=== PATIENT | female | born 1990 | race Caucasian/White ===

== ENCOUNTER 2016-07-10 18:17 | Inpatient (IN) | payer MEDICAID, SELFPAY ==
[~2016-07-10] VITALS: Ht 170.2 cm; Wt 58.3 kg
[~2016-07-10 18:17] MED LIST: DESO0.0557 EX; PRAZ1CAP PO; PRIL20CA PO; REME15TA PO; TRAZ100T2 PO; VICO5TAB PO
[2016-07-10] MEDS ORDERED: QUET1TAB8 PO (18:40)
[2016-07-10] MEDS ORDERED: CLIN1CAP5 PO (18:40)
[2016-07-10] MEDS ORDERED: CYCL10TA PO (18:40)
[2016-07-10] MEDS ORDERED: VALA1TAB PO (18:40)
[2016-07-10 19:46] LABS: MEAN CORPUSCULAR HEMOGLOBIN 28.4 pg (27.0-33.0); MEAN CORPUSCULAR VOLUME 91.6 fl (80.0-96.0); RED CELL DISTRIBUTION WIDTH 13.4 % (11.5-14.5); WHITE BLOOD COUNT 9.4 K/mm3 (4.0-10.0)
[2016-07-10 20:21] LABS: METHADONE URINE NEGATIVE (NEGATIVE)
[2016-07-10 20:26] LABS: ALBUMIN 3.5 GM/DL (3.2-5.2); ALBUMIN/GLOBULIN RATIO 1.06 (1.00-1.93); ALKALINE PHOSPHATASE 86 U/L (45-117); ALT/SGPT 83 U/L (12-78); ANION GAP 9 MEQ/L (8-16); AST/SGOT 38 U/L (15-37); BILIRUBIN,DIRECT < 0.1 MG/DL (0.0-0.2); BILIRUBIN,TOTAL 0.2 MG/DL (0.2-1.0); BLOOD UREA NITROGEN 10 MG/DL (7-18); CALCIUM LEVEL 8.5 MG/DL (8.5-10.1); CARBON DIOXIDE LEVEL 24 MEQ/L (21-32); CHLORIDE LEVEL 110 MEQ/L (98-107); CREATININE FOR GFR 0.78 MG/DL (0.55-1.02); GLOMERULAR FILTRATION RATE > 60.0 (>60); GLUCOSE, FASTING 77 MG/DL (70-105); POTASSIUM SERUM 4.3 MEQ/L (3.5-5.1); SODIUM LEVEL 143 MEQ/L (136-145); TOTAL PROTEIN 6.8 GM/DL (6.4-8.2)
[2016-07-10] MEDS ORDERED: cloNIDine 0.1 MG TAB PO ONE (20:30)
[2016-07-10] MEDS ORDERED: MOM 30ML SUSPENSION UDC PO PRN (21:00)
[2016-07-10] MEDS ORDERED: ACETAMINOPHEN TAB 650MG DOSE (2X325MG) PO PRN (21:00)
[2016-07-10] MEDS ORDERED: MAALOX 30 ML SUSP *UDC PO PRN (21:00)
[2016-07-10] MEDS: traZODone 50 MG TAB PO PRN (23:05)
[2016-07-10] MEDS: LORazepam 1 MG TAB PO PRN (23:05)
[2016-07-10] MEDS ORDERED: NICOTINE 21MG/24HR 1 EA TRANSDERMAL TD ONE (23:15)
[2016-07-11 06:28] VITALS: BP 105/56
[2016-07-11] MEDS: MULTIVITAMINS/MINERALS THERAP 1 TAB PO SCH (09:00)
[2016-07-11] MEDS: NICOTINE 21MG/24HR 1 EA TRANSDERMAL TD SCH ×2 (09:00→11:05)
[2016-07-11] MEDS: FOLIC ACID 1 MG TAB PO SCH (09:00)
[2016-07-11] MEDS: THIAMINE 100 MG TAB PO SCH (09:00)
--- NOTE | 2016-07-11 09:02 | ECGEPIP ---
Stationary ECG Study [facility] - ED Test Date: 2016-07-10 Pat Name: OSCAR RICE Department: Room: [place] [address] Gender: F Home Health Scheduler: : 1990 Requested By: LUÍS CHANDLER Order Number: [id number] Reading MD: Mis Medina Measurements Intervals [place] Rate: 67 P: 58 MT: 136 QRS: 74 QRSD: 82 T: 51 QT: 393 QTc: 416 Interpretive Statements SINUS RHYTHM POSSIBLE RIGHT VENTRICULAR CONDUCTION DELAY NO PRIOR FOR COMPARISON Electronically Signed On 07-11-2016 9:02:41 EDT by Mis Medina
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
[2016-07-11] MEDS: HALOPERIDOL 2 MG TAB PO PRN ×2 (11:05→20:40)
[2016-07-11] MEDS: LORazepam 1 MG TAB PO PRN (11:05)
[2016-07-11 11:40] VITALS: BP 115/58
[2016-07-11] MEDS ORDERED: ONDANSETRON 4 MG TAB (S0181) PO PRN ×2 (11:45→19:15)
[2016-07-11] MEDS ORDERED: LORazepam 1 MG TAB PO PRN (11:45)
[2016-07-11] MEDS: QUEtiapine FUMARATE 50 MG TAB PO SCH ×2 (12:22→20:38)
[2016-07-11 18:00] VITALS: BP 98/56
[2016-07-11 20:00] VITALS: BP 118/60
[2016-07-11] MEDS: cloNIDine 0.1 MG TAB PO PRN (20:38)
[2016-07-11] MEDS: LORazepam 0.5 MG TAB PO PRN (20:39)
[2016-07-11] MEDS: DICYCLOMINE 10 MG CAP PO PRN (20:39)
[2016-07-11] MEDS: CLINDAMYCIN 150 MG CAP PO SCH (22:21)
[2016-07-11 22:41] LABS: CONTROL LINE HCG INT CTR LINE PRESENT
[2016-07-12 06:44] VITALS: BP 101/51
[2016-07-12] MEDS: MULTIVITAMINS/MINERALS THERAP 1 TAB PO SCH (08:05)
[2016-07-12] MEDS: THIAMINE 100 MG TAB PO SCH (08:05)
[2016-07-12] MEDS: FOLIC ACID 1 MG TAB PO SCH (08:05)
[2016-07-12] MEDS: HALOPERIDOL 2 MG TAB PO PRN ×2 (08:05→15:12)
[2016-07-12] MEDS: QUEtiapine FUMARATE 50 MG TAB PO SCH (08:05)
[2016-07-12] MEDS: CLINDAMYCIN 150 MG CAP PO SCH ×3 (08:05→20:54)
[2016-07-12] MEDS: NICOTINE 21MG/24HR 1 EA TRANSDERMAL TD SCH (08:05)
[2016-07-12] MEDS: LORazepam 0.5 MG TAB PO PRN ×3 (08:06→19:08)
[2016-07-12] MEDS: cloNIDine 0.1 MG TAB PO PRN (08:06)
[2016-07-12] MEDS: LACTOBACILLUS ACIDOPHILUS CAP (BACID) PO SCH ×2 (08:06→20:53)
[2016-07-12] MEDS: DICYCLOMINE 10 MG CAP PO PRN ×2 (08:06→19:08)
[2016-07-12 10:00] VITALS: BP 97/51
[2016-07-12] MEDS: DIVALPROEX 250MG *ER* TAB PO SCH ×2 (12:58→20:54)
[2016-07-12 13:24] VITALS: BP 107/52
[2016-07-12 18:00] VITALS: BP 120/59
[2016-07-12] MEDS: QUEtiapine FUMARATE 100 MG TAB PO SCH (20:53)
[2016-07-12 21:00] VITALS: BP 124/58
[2016-07-13 06:47] VITALS: BP 107/60
[2016-07-13] MEDS: FOLIC ACID 1 MG TAB PO SCH (08:32)
[2016-07-13] MEDS: QUEtiapine FUMARATE 100 MG TAB PO SCH ×2 (08:32→20:12)
[2016-07-13] MEDS: MULTIVITAMINS/MINERALS THERAP 1 TAB PO SCH (08:32)
[2016-07-13 08:33] VITALS: BP 122/64
[2016-07-13] MEDS: cloNIDine 0.1 MG TAB PO PRN (08:33)
[2016-07-13] MEDS: CLINDAMYCIN 150 MG CAP PO SCH ×3 (08:33→20:12)
[2016-07-13] MEDS: LACTOBACILLUS ACIDOPHILUS CAP (BACID) PO SCH ×2 (08:33→20:12)
[2016-07-13] MEDS: DIVALPROEX 250MG *ER* TAB PO SCH ×2 (08:33→20:12)
[2016-07-13] MEDS: NICOTINE 21MG/24HR 1 EA TRANSDERMAL TD SCH (08:33)
[2016-07-13] MEDS: DICYCLOMINE 10 MG CAP PO PRN ×2 (08:34→23:53)
[2016-07-13] MEDS: LORazepam 0.5 MG TAB PO PRN ×3 (08:34→20:12)
[2016-07-13] MEDS: THIAMINE 100 MG TAB PO SCH (08:38)
[2016-07-13 10:05] VITALS: BP 111/55
--- NOTE | 2016-07-13 15:51 | IPN ---
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 She has lived in many places, including [place] and [place]. Her mother and father live in [place] and she became homesick and frequently returns here and then leaves. She has had three previous hospitalizations, two in [place] and one here. Her first admission she does not remember well, she says she was mandated. Her second admission she threatened to kill herself. Her third admission here she was suicidal and stayed here for a month according to her. She has taken herself off of medications because she did not want to be on medications, but also for economic reasons, she was unable to pay for them. She now wants to be back on her Seroquel because she states she has a terrible temper and can become very violent. She wants to try Depakote because her mother has been on it and her mother, she says, has been diagnosed as bipolar, schizophrenic, and depressed. MENTAL STATUS EXAMINATION: Patient has numerous tattoos. Eye contact is good. Normal volume and articulation of speech. His mood is fair. Her affect is neutral. She denies hallucinations and delusions. Her memory, immediate and remote, is intact. She is fully oriented. No loose associations. She states she has been suicidal and denies homicidal ideation. Judgment is fair. The patient states she has had significant depression and has been on numerous medications which were too many for her to remember. Patient requested to be on an increased dose of Seroquel despite the fact that she had stopped it previously and because her mother is on Depakote she would like to be on Depakote. I increased her Seroquel to 100 twice a day and placed her on a beginning dose of Depakote 250 twice a day and we will wait until Tiffanie Brown sees her. IMPRESSION: 1. Bipolar disorder, depressed type. 2. Polysubstance abuse. 3. Personality disorder.
[2016-07-13 18:00] VITALS: BP 115/59
[2016-07-13] MEDS: traZODone 50 MG TAB PO PRN (23:54)
--- NOTE | 2016-07-14 01:22 | IPN ---
DATE: 07/13/2016 Jose Miguel Pina was seen by me today. Her mood was good. She discussed the repetitive patterns that require her readmissions and use of drugs. 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 She states she has numerous friends in [place] and numerous friends here who she has used with. She is hoping to move back to [place]. She complains of pain in her tooth that she will be discussing with Tiffanie Brown NP and the need for dental care. She discussed her tendency to stop her medications considering taking medications as embarrassing. She hopes to go into law enforcement, but states that her ability to plan is very poor and that in fact she is significantly impulsive. MENTAL STATUS EXAMINATION: Appearance is appropriate. Eye contact is good. Volume and articulation of speech are normal. Mood is good. Affect is bright. Denies hallucinations or delusions. Her memory recent, remote and immediate experiences are intact. She is oriented in all spheres. There are no loose associations. She denies suicidal or homicidal ideation. Her judgment is poor. DIAGNOSIS: Bipolar disorder, polysubstance dependence. No change in mediation as of today. Plan as per Tiffanie HILL
[2016-07-14 06:42] VITALS: BP 99/62
[2016-07-14] MEDS: LACTOBACILLUS ACIDOPHILUS CAP (BACID) PO SCH ×2 (09:33→20:24)
[2016-07-14] MEDS: DIVALPROEX 250MG *ER* TAB PO SCH (09:33)
[2016-07-14] MEDS: MULTIVITAMINS/MINERALS THERAP 1 TAB PO SCH (09:33)
[2016-07-14] MEDS: LORazepam 0.5 MG TAB PO PRN (09:33)
[2016-07-14] MEDS: QUEtiapine FUMARATE 100 MG TAB PO SCH ×2 (09:33→20:24)
[2016-07-14] MEDS: CLINDAMYCIN 150 MG CAP PO SCH ×3 (09:33→20:24)
[2016-07-14] MEDS: FOLIC ACID 1 MG TAB PO SCH (09:33)
[2016-07-14] MEDS: THIAMINE 100 MG TAB PO SCH (09:33)
[2016-07-14] MEDS: NICOTINE 21MG/24HR 1 EA TRANSDERMAL TD SCH (09:33)
--- NOTE | 2016-07-14 11:22 | HPE ---
DATE OF ADMISSION: 07/10/2016 HISTORY OF PRESENT ILLNESS: Please refer to psychiatric history and evaluation for further details on this admission. This examination and history is intended for medical issues, which may need treatment, followup or consult on this 26-year-old female. ALLERGIES: 1. PENICILLIN 2. DIPHENHYDRAMINE 3. LASIX SOCIAL HISTORY: She recently left rehabilitation in [place] on Thursday. She flew here and was picked up by her mother and then brought to the emergency room here. She is single. Ethyl alcohol (EtOH) rarely. Smokes one pack of cigarettes per day. Recreational drug use: She abuses opiates. She used heroin last on 07/05/2016. PAST MEDICAL HISTORY: Opiate abuse. Hepatitis C. PAST SURGICAL HISTORY: Negative. FAMILY HISTORY: Noncontributory. LABORATORY DATA: WBC is 9.4, hemoglobin 13.2, hematocrit 42.7, platelets 274. BUN 10, creatinine 0.78. AST 38, ALT 83. Urine is positive for cocaine, positive for cannabinoids. EKG showed sinus rhythm, rate of 67. HOME MEDICATIONS: - clindamycin 300 by mouth four times a day for dental abscess - Flexeril 10 mg by mouth three times a day as needed for muscle spasm - Seroquel 100 mg by mouth twice a day - valacyclovir 1 gram by mouth twice a day as needed REVIEW OF SYSTEMS: 10 system review was done. She complains of some nausea, some sweatiness, agitation, achiness from heroin withdrawal. Otherwise negative. PHYSICAL EXAMINATION: GENERAL: A 26-year-old female in no acute distress. The patient is alert and oriented times three. VITAL SIGNS: Height 67 inches, weight 56 kg. Body mass index (BMI) 19.3. Temperature 98.5, pulse 67, respirations 20, blood pressure 105/56. HEENT: Pupils equal and reactive to light. Extraocular movements intact. Cornea and sclerae clear. Conjunctivae normal. No facial asymmetry. Pharynx, tongue, and gums pink and moist. Tongue is midline. NECK: Supple, without lymphadenopathy. No thyromegaly. No goiter. CHEST: Clear to auscultation, without wheeze or retraction. HEART: Regular. ABDOMEN: Benign. Bowel sounds positive. /RECTAL: Not done. EXTREMITIES: Show equal strength. Full range of motion. No cyanosis, clubbing or edema. Peripheral pulses equal and palpable bilaterally. SKIN: Warm and dry. IMPRESSION AND PLAN: 1. Psychiatric plan per psychiatry. 2. History of hepatitis C. Patient will need referral to Dr. Turk as an outpatient. 3. Elevated aspartate transaminase (AST), alanine transaminase (ALT). 4. Dental abscess and caries. Continue clindamycin. Will order clindamycin 300 mg by mouth three times a day, as well as acidophilus, lactobacillus one by mouth twice a day.
[2016-07-14 12:00] VITALS: BP 107/65
--- NOTE | 2016-07-14 13:08 | IPNPDOC ---
[facility] Progress Note Progress Note DATE OF SERVICE: 07/14/16 HISTORY: Patient is a 26-year-old female who indicates she has been experiencing suicidal ideation with no plan or intent for the past week prior to admission. Double Bass Player met with patient today to assess treatment progress and inpatient unit. Patient met with weekend provider who increased patient's Seroquel and began treating with Depakote, patient indicates she feels "better, not quite so all over the place with my mood." Patient reports reduced symptoms of anxiety and depression, denies suicidal and homicidal ideation, denies audiovisual hallucinations, denies urge to engage in self-injurious behavior. Patient states she has been sleeping well with exception of last night, denies nightmares symptoms. Patient states concentration and focus have improved, reports improvement in energy level, states appetite has also improved. Patient denies symptoms of craving or withdrawal, has reduced use of PRN medications and has been advised to further reduce use of Ativan PRN as tolerated. Patient presents with no signs of acute distress at time of interaction. Patient reports ongoing challenges with teeth, denies pain, was advised to address with nursing and/or PA. VITAL SIGNS: See below. NEW TEST RESULTS: .Labs on admission indicate dictated elevated chloride level, AST, ALT and low MCHC. Patient denies having chronic health issues, denies history of seizure or head injury, hep C. UDS positive for cocaine and cannabinoids 07/11/16 EKG SINUS RHYTHM POSSIBLE RIGHT VENTRICULAR CONDUCTION DELAY NO PRIOR FOR COMPARISON HCG negative CURRENT MEDICATIONS: See below. MENTAL STATUS EXAMINATION: Patient is a 26-year-old single female who is observed to be up out of bed, dressed in own clothing, walking the hallways and socializing with peers, exhibiting good personal hygiene, makes good eye contact, ambulates with steady gait, appears stated age. Speech: Is of normal rate, rhythm, volume, coherent, spontaneous. Language skills are intact. Thought processes: Intact, clear and goal-directed Thought content: Rational and logical, no tangentiality noted, does not appear paranoid Abstract reasoning, and computation: Requires further evaluation Description of associations: Intact Description of abnormal or psychotic thoughts: Denies current hallucinations but indicates she was informed by ER staff that she was talking to herself, denies delusions, preoccupation with violence, homicidal or suicidal ideation, and obsessions. Judgment: Poor Insight: Poor Orientation to time, place and person. Recent and remote memory: Appears intact Attention span and concentration: Limited Language: Normal Fund of knowledge: Adequate Mood: "Much better than I was, pretty good." Patient appears less depressed, less anxious, less mood lability noted Affect: Constricted, congruent with affect DIAGNOSES: Unspecified mood disorder, polysubstance use disorder, rule out bipolar disorder, rule out substance-induced mood disorder, rule out PTSD ASSESSMENT: Patient has adjusted to unit, is visible, and is attending groups, socializing with select peers. Weekend provider increased patient's Seroquel and added Depakote in effort to address mood instability. Double Bass Player and patient spoke today at length regarding the importance of medication compliance. Patient was encouraged to utilize control and was informed of the risks associated with and current medication regimen, patient verbalized understanding. Patient denies suicidal and homicidal ideation and verbalizes awareness of how to access supportive services on the unit if needed. Will monitor patient's response to Seroquel and will increase patient's Depakote in effort to further stabilize mood. Patient denies medication side effects. Will monitor patient response to medication and monitor for side effects. Will further evaluate patient's safety, resolution of suicidal ideation, and discharge readiness. Patient states at time of discharge she would like to discharge home with her mother and participate in outpatient psychotherapy, medication management, and substance abuse treatment in [facility]. Patient is refusing inpatient substance abuse treatment at this time. Patient informs keno writer / runner today she is looking into participating in a longterm house program, denies need for assistance in accessing information about the program. MANAGEMENT PLAN: Continue Seroquel 100 mg po BID. Increase Depakote ER to 500 mg po BID. Evaluate discontinuation of trazodone once patient's sleep is stabilized. Labs ordered for 07/18/16 for valproate, LFTs, CBC Maintain safety precautions Patient to attend groups and participate in unit programming to develop coping strategies Engage patient in discharge planning process and arrange meeting with support system to ensure safe discharge planning when appropriate Patient to follow up with PCM upon discharge TIME SPENT: 35 minutes. Vital Signs Vital Signs Date Time Temp Pulse Resp B/P Pulse Ox O2 Delivery O2 Flow Rate FiO2 07/14/16 12:00 98.6 90 16 107/65 07/10/16 20:43 96 07/10/16 18:18 Room Air Current Medications Current Medications Acetaminophen (Tylenol Tab) 650 mg Q6HP PRN PO HEADACHE or DISCOMFORT; Start at 21:00; Stop 08/09/16 at 20:59 Al Hydrox/Mg Hydrox/Simethicone (Mylanta) 30 ml Q4HP PRN PO HEARTBURN/ INDIGESTION; Start 07/10/16 at 21:00; Stop 08/09/16 at 20:59 Clindamycin HCl (Cleocin) 300 mg TID PO Last administered on 07/14/16 09:33; Start 07/11/16 at 21:00; Stop 07/18/16 at 20:59 Clonidine HCl (Catapres) 0.1 mg Q6HP PRN PO WITHDRAWAL SYMPTOMS Last administered on 07/13/16 08:33; Start 07/11/16 at 13:00; Stop 08/10/16 at 12:59 Dicyclomine HCl (Bentyl) 10 mg BIDP PRN PO muscle cramps Last administered on 23:53; Start 07/11/16 at 11:45; Stop 08/10/16 at 11:44 Divalproex Sodium (Depakote Er) 250 mg BID PO Last administered on 07/14/16 09 :33; Start 07/12/16 at 09:00; Stop 08/11/16 at 08:59 Folic Acid (Folic Acid) 1 mg DAILY PO Last administered on 07/14/16 09:33; Start 07/11/16 at 09:00; Stop 08/10/16 at 08:59 Haloperidol (Haldol) 2 mg Q4HP PRN PO AGITATION Last administered on 07/12/16 15:12; Start 07/10/16 at 21:00; Stop 08/09/16 at 20:59 Lactobacillus Acidophilus (Bacid) 1 ea BID PO Last administered on 07/14/16 09 :33; Start 07/12/16 at 09:00; Stop 08/11/16 at 08:59 Lorazepam (Ativan) 0.5 mg Q4HP PRN PO ANXIETY; Start 07/11/16 at 11:45; Stop at 12:12; Status DC Lorazepam (Ativan) 0.5 mg Q4HP PRN PO ANXIETY Last administered on 07/14/16 09 :33; Start 07/11/16 at 15:00; Stop 07/18/16 at 14:59 Lorazepam (Ativan) 1 mg Q4HP PRN PO ANXIETY Last administered on 07/11/16 11: 05; Start 07/10/16 at 21:00; Stop 07/11/16 at 12:07; Status DC Magnesium Hydroxide (Milk Of Magnesia) 30 ml DAILYPRN PRN PO CONSTIPATION; Start 07/10/16 at 21:00; Stop 08/09/16 at 20:59 Multivitamins (Theragram-M) 1 tab DAILY PO Last administered on 07/14/16 09:33 ; Start 07/11/16 at 09:00; Stop 08/10/16 at 08:59 Nicotine (Nicoderm Cq 21mg) 1 patch DAILY TD Last administered on 07/14/16 09: 33; Start 07/11/16 at 09:00; Stop 08/10/16 at 08:59 Ondansetron HCl (Zofran) 2 mg Q6HP PRN PO NAUSEA OR VOMITING Last administered on 07/11/16 12:23; Start 07/11/16 at 11:45; Stop 07/11/16 at 19:04; Status DC Ondansetron HCl (Zofran) 4 mg Q6HP PRN PO NAUSEA OR VOMITING; Start 07/11/16 at 19:15; Stop 08/10/16 at 19:14 Quetiapine Fumarate (SEROquel) 50 mg BID PO Last administered on 07/12/16 08: 05; Start 07/11/16 at 09:00; Stop 07/12/16 at 12:19; Status DC Quetiapine Fumarate (SEROquel) 100 mg BID PO Last administered on 07/14/16 09: 33; Start 07/12/16 at 21:00; Stop 08/11/16 at 20:59 Thiamine HCl (Thiamine HCl) 100 mg DAILY PO Last administered on 07/14/16 09: 33; Start 07/11/16 at 09:00; Stop 08/10/16 at 08:59 Trazodone HCl (Desyrel) 50 mg QHSP PRN PO INSOMNIA Last administered on 23:54; Start 07/10/16 at 21:00; Stop 08/09/16 at 20:59 Allergies Coded Allergies: Diphenhydramine (Verified Allergy, Intermediate, 07/10/16) Latex (Verified Allergy, Mild, skin reaction to condoms, 08/01/12) Penicillins (Verified Allergy, Unknown, 08/01/12) Penicillins Cross Reactors (Verified Allergy, Unknown, 08/01/12) Tiffanie Brown Jul 14, 2016 13:08 administered on 07/13/16 08:33; Start 07/11/16 at 13:00; Stop 08/10/16 at 12:59 Dicyclomine HCl (Bentyl) 10 mg BIDP PRN PO muscle cramps Last administered on 23:53; Start 07/11/16 at 11:45; Stop 08/10/16 at 11:44 Divalproex Sodium (Depakote Er) 250 mg BID PO Last administered on 07/14/16 09 :33; Start 07/12/16 at 09:00; Stop 08/11/16 at 08:59 Folic Acid (Folic Acid) 1 mg DAILY PO Last administered on 07/14/16 09:33; Start 07/11/16 at 09:00; Stop 08/10/16 at 08:59 Haloperidol (Haldol) 2 mg Q4HP PRN PO AGITATION Last administered on 07/12/16 15:12; Start 07/10/16 at 21:00; Stop 08/09/16 at 20:59 Lactobacillus Acidophilus (Bacid) 1 ea BID PO Last administered on 07/14/16 09 :33; Start 07/12/16 at 09:00; Stop 08/11/16 at 08:59 Lorazepam (Ativan) 0.5 mg Q4HP PRN PO ANXIETY; Start 07/11/16 at 11:45; Stop at 12:12; Status DC Lorazepam (Ativan) 0.5 mg Q4HP PRN PO ANXIETY Last administered on 07/14/16 09 :33; Start 07/11/16 at 15:00; Stop 07/18/16 at 14:59 Lorazepam (Ativan) 1 mg Q4HP PRN PO ANXIETY Last administered on 07/11/16 11: 05; Start 07/10/16 at 21:00; Stop 07/11/16 at 12:07; Status DC Magnesium Hydroxide (Milk Of Magnesia) 30 ml DAILYPRN PRN PO CONSTIPATION; Start 07/10/16 at 21:00; Stop 08/09/16 at 20:59 Multivitamins (Theragram-M) 1 tab DAILY PO Last administered on 07/14/16 09:33 ; Start 07/11/16 at 09:00; Stop 08/10/16 at 08:59 Nicotine (Nicoderm Cq 21mg) 1 patch DAILY TD Last administered on 07/14/16 09: 33; Start 07/11/16 at 09:00; Stop 08/10/16 at 08:59 Ondansetron HCl (Zofran) 2 mg Q6HP PRN PO NAUSEA OR VOMITING Last administered on 07/11/16 12:23; Start 07/11/16 at 11:45; Stop 07/11/16 at 19:04; Status DC Ondansetron HCl (Zofran) 4 mg Q6HP PRN PO NAUSEA OR VOMITING; Start 07/11/16 at 19:15; Stop 08/10/16 at 19:14 Quetiapine Fumarate (SEROquel) 50 mg BID PO Last administered on 07/12/16 08: 05; Start 07/11/16 at 09:00; Stop 07/12/16 at 12:19; Status DC Quetiapine Fumarate (SEROquel) 100 mg BID PO Last administered on 07/14/16 09: 33; Start 07/12/16 at 21:00; Stop 08/11/16 at 20:59 Thiamine HCl (Thiamine HCl) 100 mg DAILY PO Last administered on 07/14/16 09: 33; Start 07/11/16 at 09:00; Stop 08/10/16 at 08:59 Trazodone HCl (Desyrel) 50 mg QHSP PRN PO INSOMNIA Last administered on 23:54; Start 07/10/16 at 21:00; Stop 08/09/16 at 20:59 Allergies Coded Allergies: Diphenhydramine (Verified Allergy, Intermediate, 07/10/16) Latex (Verified Allergy, Mild, skin reaction to condoms, 08/01/12) Penicillins (Verified Allergy, Unknown, 08/01/12) Penicillins Cross Reactors (Verified Allergy, Unknown, 08/01/12) Tiffanie Brown Jul 14, 2016 13:08
[2016-07-14 18:00] VITALS: BP 123/62
[2016-07-14] MEDS: DIVALPROEX 500MG *ER* TAB PO SCH (20:24)
[2016-07-15 06:33] VITALS: BP 122/74
[2016-07-15] MEDS: QUEtiapine FUMARATE 100 MG TAB PO SCH ×2 (08:25→21:42)
[2016-07-15] MEDS: MULTIVITAMINS/MINERALS THERAP 1 TAB PO SCH (08:25)
[2016-07-15] MEDS: CLINDAMYCIN 150 MG CAP PO SCH ×3 (08:25→21:42)
[2016-07-15] MEDS: NICOTINE 21MG/24HR 1 EA TRANSDERMAL TD SCH (08:25)
[2016-07-15] MEDS: FOLIC ACID 1 MG TAB PO SCH (08:25)
[2016-07-15] MEDS: LACTOBACILLUS ACIDOPHILUS CAP (BACID) PO SCH ×2 (08:25→21:42)
[2016-07-15] MEDS: THIAMINE 100 MG TAB PO SCH (08:25)
[2016-07-15] MEDS: DIVALPROEX 500MG *ER* TAB PO SCH (08:25)
[2016-07-15] MEDS: LORazepam 0.5 MG TAB PO PRN (08:26)
[2016-07-15 11:34] VITALS: BP 99/58
--- NOTE | 2016-07-15 16:01 | IPNPDOC ---
[facility] Progress Note Progress Note DATE OF SERVICE: 07/15/16 HISTORY: Patient is a 26-year-old female who indicates she has been experiencing suicidal ideation with no plan or intent for past week prior to admission. Adjunct Spanish Instructor met with patient today to assess treatment progress and inpatient unit. Patient indicates Depakote may be helpful in stabilizing mood and BID Seroquel also remains effective. Patient denies medication side effects. Patient reports improvement to symptoms of anxiety and depression, denies suicidal and homicidal ideation, denies audiovisual hallucinations, denies urge to engage in self-injurious behavior. Patient states she has been sleeping well, denies nightmares symptoms. Patient states concentration and focus continue to improve, reports improvement in energy level, states appetite has also improved. Patient denies symptoms of craving or withdrawal, has reduced use of PRN medications. Adjunct Spanish Instructor and patient discussed discontinuation of withdrawal protocol, patient is in agreement, is aware that hydroxyzine PRN has been made available to her to address intermittent symptoms of anxiety should they occur. Patient presents with no signs of acute distress at time of interaction. Patient reports ongoing challenges with teeth, denies pain, was advised to address with nursing and/or PA. VITAL SIGNS: See below. NEW TEST RESULTS: Labs on admission indicate dictated elevated chloride level, AST, ALT and low MCHC. Patient denies having chronic health issues, denies history of seizure or head injury, hep C. UDS positive for cocaine and cannabinoids 07/11/16 EKG SINUS RHYTHM POSSIBLE RIGHT VENTRICULAR CONDUCTION DELAY NO PRIOR FOR COMPARISON HCG negative CURRENT MEDICATIONS: See below. MENTAL STATUS EXAMINATION: Patient is a 26-year-old single female who is observed to be up out of bed, dressed in own clothing, walking the hallways and socializing with peers, exhibiting good personal hygiene, makes good eye contact, ambulates with steady gait, appears stated age. Speech: Is of normal rate, rhythm, volume, coherent, spontaneous. Language skills are intact. Thought processes: Intact, clear and goal-directed Thought content: Rational and logical, no tangentiality noted, does not appear paranoid Abstract reasoning, and computation: Requires further evaluation Description of associations: Intact Description of abnormal or psychotic thoughts: Denies current hallucinations but indicates she was informed by ER staff that she was talking to herself, denies delusions, preoccupation with violence, homicidal or suicidal ideation, and obsessions. Judgment: Limited, some improvement noted Insight: Limited, some improvement noted Orientation to time, place and person. Recent and remote memory: Appears intact Attention span and concentration: Limited Language: Normal Fund of knowledge: Adequate Mood: "Much better, calm or, more steady, less irritable." Patient appears less depressed, less anxious, less mood lability noted Affect: Constricted, and brightens 2 during interaction, congruent with affect DIAGNOSES: Unspecified mood disorder, polysubstance use disorder, rule out bipolar disorder, rule out substance-induced mood disorder, rule out PTSD ASSESSMENT: Patient has adjusted to unit, is visible, and is attending groups, socializing with select peers. Weekend provider increased patient's Seroquel and added Depakote in effort to address mood instability. Adjunct Spanish Instructor and patient spoke again today regarding the importance of medication compliance. Patient denies suicidal and homicidal ideation and verbalizes awareness of how to access supportive services on the unit if needed. Will monitor patient's response to Seroquel. Discussed with patient today recommendation for dose reduction/discontinuation of Depakote in light of patient's diagnosis of hep C. Patient indicates she has had hep C "for years," has never been symptomatic. Patient is agreeable to Depakote dose reduction, verbalizes awareness of medication risks for hepatotoxicity. Medication options were reviewed with patient who indicates "I don't want to do anything that might keep me here longer." Patient denies medication side effects. Will monitor patient response to medication and monitor for side effects. Will further evaluate patient's safety, resolution of suicidal ideation, and discharge readiness. Patient states at time of discharge she would like to discharge home with her mother and participate in outpatient psychotherapy, medication management, and substance abuse treatment in [place]. Patient is refusing inpatient substance abuse treatment at this time. brewery cellar worker has offered to assist patient in looking into nursing home house program in which patient expressed interest, patient has declined assistance. Patient was encouraged to utilize control and was informed of the risks associated with and current medication regimen, patient verbalized understanding. MANAGEMENT PLAN: Continue Seroquel 100 mg po BID. Reduce Depakote ER to 250 mg po BID,. Labs ordered for 07/18/16 for valproate, LFTs, CBC Maintain safety precautions Patient to attend groups and participate in unit programming to develop coping strategies Engage patient in discharge planning process and arrange meeting with support system to ensure safe discharge planning when appropriate Patient to follow up with PCM upon discharge TIME SPENT: 35 minutes. Vital Signs Vital Signs Date Time Temp Pulse Resp B/P Pulse Ox O2 Delivery O2 Flow Rate FiO2 07/15/16 11:34 98.4 88 18 99/58 07/10/16 20:43 96 07/10/16 18:18 Room Air Current Medications Current Medications Acetaminophen (Tylenol Tab) 650 mg Q6HP PRN PO HEADACHE or DISCOMFORT; Start at 21:00; Stop 08/09/16 at 20:59 Al Hydrox/Mg Hydrox/Simethicone (Mylanta) 30 ml Q4HP PRN PO HEARTBURN/ INDIGESTION; Start 07/10/16 at 21:00; Stop 08/09/16 at 20:59 Clindamycin HCl (Cleocin) 300 mg TID PO Last administered on 07/15/16 08:25; Start 07/11/16 at 21:00; Stop 07/18/16 at 20:59 Clonidine HCl (Catapres) 0.1 mg Q6HP PRN PO WITHDRAWAL SYMPTOMS Last administered on 07/13/16 08:33; Start 07/11/16 at 13:00; Stop 07/15/16 at 15:59 ; Status DC Dicyclomine HCl (Bentyl) 10 mg BIDP PRN PO muscle cramps Last administered on 23:53; Start 07/11/16 at 11:45; Stop 07/15/16 at 15:59; Status DC Divalproex Sodium (Depakote Er) 250 mg BID PO Last administered on 07/14/16 09 :33; Start 07/12/16 at 09:00; Stop 07/14/16 at 18:12; Status DC Divalproex Sodium (Depakote Er) 500 mg BID PO Last administered on 07/15/16 08 :25; Start 07/14/16 at 21:00; Stop 08/13/16 at 20:59 Folic Acid (Folic Acid) 1 mg DAILY PO Last administered on 07/15/16 08:25; Start 07/11/16 at 09:00; Stop 08/10/16 at 08:59 Haloperidol (Haldol) 2 mg Q4HP PRN PO AGITATION Last administered on 07/12/16 15:12; Start 07/10/16 at 21:00; Stop 07/15/16 at 15:59; Status DC Hydroxyzine HCl (Atarax) 50 mg Q6HP PRN PO ANXIETY; Start 07/15/16 at 16:00; Stop 08/14/16 at 15:59; Status UNV Lactobacillus Acidophilus (Bacid) 1 ea BID PO Last administered on 07/15/16 08 :25; Start 07/12/16 at 09:00; Stop 08/11/16 at 08:59 Lorazepam (Ativan) 0.5 mg Q4HP PRN PO ANXIETY; Start 07/11/16 at 11:45; Stop at 12:12; Status DC Lorazepam (Ativan) 0.5 mg Q4HP PRN PO ANXIETY Last administered on 07/15/16 08 :26; Start 07/11/16 at 15:00; Stop 07/15/16 at 15:59; Status DC Lorazepam (Ativan) 1 mg Q4HP PRN PO ANXIETY Last administered on 07/11/16 11: 05; Start 07/10/16 at 21:00; Stop 07/11/16 at 12:07; Status DC Magnesium Hydroxide (Milk Of Magnesia) 30 ml DAILYPRN PRN PO CONSTIPATION; Start 07/10/16 at 21:00; Stop 08/09/16 at 20:59 Multivitamins (Theragram-M) 1 tab DAILY PO Last administered on 07/15/16 08:25 ; Start 07/11/16 at 09:00; Stop 08/10/16 at 08:59 Nicotine (Nicoderm Cq 21mg) 1 patch DAILY TD Last administered on 07/15/16 08: 25; Start 07/11/16 at 09:00; Stop 08/10/16 at 08:59 Ondansetron HCl (Zofran) 2 mg Q6HP PRN PO NAUSEA OR VOMITING Last administered on 07/11/16 12:23; Start 07/11/16 at 11:45; Stop 07/11/16 at 19:04; Status DC Ondansetron HCl (Zofran) 4 mg Q6HP PRN PO NAUSEA OR VOMITING; Start 07/11/16 at 19:15; Stop 07/15/16 at 15:59; Status DC Quetiapine Fumarate (SEROquel) 50 mg BID PO Last administered on 07/12/16 08: 05; Start 07/11/16 at 09:00; Stop 07/12/16 at 12:19; Status DC Quetiapine Fumarate (SEROquel) 100 mg BID PO Last administered on 07/15/16 08: 25; Start 07/12/16 at 21:00; Stop 08/11/16 at 20:59 Thiamine HCl (Thiamine HCl) 100 mg DAILY PO Last administered on 07/15/16 08: 25; Start 07/11/16 at 09:00; Stop 08/10/16 at 08:59 Trazodone HCl (Desyrel) 50 mg QHSP PRN PO INSOMNIA Last administered on 23:54; Start 07/10/16 at 21:00; Stop 07/15/16 at 15:59; Status DC Allergies Coded Allergies: Diphenhydramine (Verified Allergy, Intermediate, HIVES, 07/16/16) Latex (Verified Allergy, Mild, skin reaction to condoms, 08/01/12) Penicillins (Verified Allergy, Unknown, 08/01/12) Penicillins Cross Reactors (Verified Allergy, Unknown, 08/01/12) Tiffanie Brown Jul 15, 2016 16:01
[2016-07-15 18:00] VITALS: BP 102/60
[2016-07-15] MEDS: DIVALPROEX 250MG *ER* TAB PO SCH (21:42)
[2016-07-16 06:19] VITALS: BP 125/60
[2016-07-16] MEDS: NICOTINE 21MG/24HR 1 EA TRANSDERMAL TD SCH (08:52)
[2016-07-16] MEDS: THIAMINE 100 MG TAB PO SCH (08:52)
[2016-07-16] MEDS: LACTOBACILLUS ACIDOPHILUS CAP (BACID) PO SCH ×2 (08:52→20:12)
[2016-07-16] MEDS: CLINDAMYCIN 150 MG CAP PO SCH ×3 (08:52→20:13)
[2016-07-16] MEDS: MULTIVITAMINS/MINERALS THERAP 1 TAB PO SCH (08:53)
[2016-07-16] MEDS: QUEtiapine FUMARATE 100 MG TAB PO SCH ×2 (08:53→21:18)
[2016-07-16] MEDS: DIVALPROEX 250MG *ER* TAB PO SCH (08:53)
[2016-07-16] MEDS: FOLIC ACID 1 MG TAB PO SCH (08:53)
[2016-07-16 14:00] VITALS: BP 118/64
--- NOTE | 2016-07-16 17:37 | IPNPDOC ---
[facility] Progress Note Progress Note DATE OF SERVICE: 07/16/16 HISTORY: Patient is a 26-year-old female who indicates she has been experiencing suicidal ideation with no plan or intent for week prior to admission. Bariatric Program Coordinator met with patient today to assess treatment progress and inpatient unit. Patient indicates today she is feeling "for the most part better ," indicates Seroquel BID remains effective, indicates today she would like to discontinue taking Depakote. Patient denies medication side effects. Patient denies symptoms of agitation and impulsivity, notes at times she feels "irritable" due to behavior of other patients on unit, verbalizes strategies for coping with feelings and verbalizes awareness of how to access staff support on unit and agrees to do so if needed. Patient rates current anxiety level as 4/10, depression 0/10, denies suicidal and homicidal ideation, denies audiovisual hallucinations, and denies urge to engage in self-injurious behavior. Patient reports improvement to symptoms of anxiety and depression, denies suicidal and homicidal ideation, denies audiovisual hallucinations, denies urge to engage in self-injurious behavior. Patient states she has been sleeping well, denies nightmares symptoms. Patient states concentration and focus continue to improve, reports improvement in energy level, states appetite has also improved. Patient denies symptoms of craving or withdrawal, has reduced use of PRN medications, is aware she has hydroxyzine available to her PRN for anxiety. Patient presents with no signs of acute distress at time of interaction. VITAL SIGNS: See below. NEW TEST RESULTS: Labs on admission indicate dictated elevated chloride level, AST, ALT and low MCHC. Patient denies having chronic health issues, denies history of seizure or head injury, hep C, is asymptomatic. UDS positive for cocaine and cannabinoids 07/11/16 EKG SINUS RHYTHM POSSIBLE RIGHT VENTRICULAR CONDUCTION DELAY NO PRIOR FOR COMPARISON HCG negative CURRENT MEDICATIONS: See below. MENTAL STATUS EXAMINATION: Patient is a 26-year-old single female who is observed to be up out of bed, dressed in own clothing, walking the hallways and socializing with peers, exhibiting good personal hygiene, makes good eye contact, ambulates with steady gait, appears stated age. Speech: Is of normal rate, rhythm, volume, coherent, spontaneous. Language skills are intact. Thought processes: Intact, clear and goal-directed Thought content: Rational and logical, no tangentiality noted, does not appear paranoid Abstract reasoning, and computation: Requires further evaluation Description of associations: Intact Description of abnormal or psychotic thoughts: Denies current hallucinations but indicates she was informed by ER staff that she was talking to herself, denies delusions, preoccupation with violence, homicidal or suicidal ideation, and obsessions. Judgment: Limited, some improvement noted Insight: Limited, some improvement noted Orientation to time, place and person. Recent and remote memory: Appears intact Attention span and concentration: Limited Language: Normal Fund of knowledge: Adequate Mood: "I feel anxious at times, but mostly better." Patient appears less depressed, less anxious, less mood lability noted Affect: Constricted, and brightens 1 during interaction, congruent with affect DIAGNOSES: Unspecified mood disorder, polysubstance use disorder, rule out bipolar disorder, rule out substance-induced mood disorder, rule out PTSD ASSESSMENT: Patient continues to adjust to unit, is visible, and is attending groups, socializing with select peers, isolates to room at times to read between groups. Bariatric Program Coordinator and patient spoke again today regarding the importance of medication compliance. Bariatric Program Coordinator discussed with patient again today dose reduction/discontinuation of Depakote in light of patient's diagnosis of hep C, patient remains asymptomatic. Bariatric Program Coordinator recommending medication discontinuation in order to avoid potential medication side effects from Depakote, life underwriter reviewed medication alternatives with patient who indicated she feels Seroquel at current dose is effective in stabilizing mood and improving sleep. Patient denies current medication side effects. Patient agreed that Depakote at current dose "not really doing anything and I feel fine," indicates she would like to discontinue medication. Medication alternatives were discussed with patient who states she does not feel she needs medication in addition to Seroquel at this time adding, "I want to discharge on Thursday and I don't want to start anything that might make me have to stay here longer," also notes she will pursue with outpatient provider if needed after discharge. Patient denies suicidal and homicidal ideation and verbalizes awareness of how to access supportive services on the unit if needed. Will continue to monitor patient's response to Seroquel. Will into new to monitor patient response to medication and monitor for side effects. Will further evaluate patient's safety, resolution of suicidal ideation, and discharge readiness. Patient was informed that family meeting has been scheduled for Thursday at noon with discharge plan thereafter. Patient states at time of discharge she would like to discharge home with her mother and participate in outpatient psychotherapy, medication management, and substance abuse treatment in [place]. Patient is refusing inpatient substance abuse treatment at this time. carry in worker has offered to assist patient in looking into alf house program in which patient expressed interest, patient has declined assistance. Patient was encouraged to utilize control and was informed of the risks associated with and current medication regimen, patient verbalized understanding. MANAGEMENT PLAN: Continue Seroquel 100 mg po BID. Discontinue Depakote ER to 250 mg po BID. Labs ordered for 07/18/16 for valproate, LFTs, CBC Maintain safety precautions Patient to attend groups and participate in unit programming to develop coping strategies Engage patient in discharge planning process and arrange meeting with support system to ensure safe discharge planning when appropriate Patient to follow up with PCM upon discharge TIME SPENT: 25 minutes. Vital Signs Vital Signs Date Time Temp Pulse Resp B/P Pulse Ox O2 Delivery O2 Flow Rate FiO2 07/16/16 06:19 97.7 84 18 125/60 07/10/16 20:43 96 07/10/16 18:18 Room Air Current Medications Current Medications Acetaminophen (Tylenol Tab) 650 mg Q6HP PRN PO HEADACHE or DISCOMFORT Last administered on 07/15/16 16:11; Start 07/10/16 at 21:00; Stop 08/09/16 at 20:59 Al Hydrox/Mg Hydrox/Simethicone (Mylanta) 30 ml Q4HP PRN PO HEARTBURN/ INDIGESTION; Start 07/10/16 at 21:00; Stop 08/09/16 at 20:59 Clindamycin HCl (Cleocin) 300 mg TID PO Last administered on 07/16/16 16:05; Start 07/11/16 at 21:00; Stop 07/18/16 at 20:59 Clonidine HCl (Catapres) 0.1 mg Q6HP PRN PO WITHDRAWAL SYMPTOMS Last administered on 07/13/16 08:33; Start 07/11/16 at 13:00; Stop 07/15/16 at 15:59 ; Status DC Dicyclomine HCl (Bentyl) 10 mg BIDP PRN PO muscle cramps Last administered on 23:53; Start 07/11/16 at 11:45; Stop 07/15/16 at 15:59; Status DC Divalproex Sodium (Depakote Er) 250 mg BID PO Last administered on 07/14/16 09 :33; Start 07/12/16 at 09:00; Stop 07/14/16 at 18:12; Status DC Divalproex Sodium (Depakote Er) 250 mg BID PO Last administered on 07/16/16 08 :53; Start 07/15/16 at 21:00; Stop 08/14/16 at 20:59 Divalproex Sodium (Depakote Er) 500 mg BID PO Last administered on 07/15/16 08 :25; Start 07/14/16 at 21:00; Stop 07/15/16 at 19:44; Status DC Folic Acid (Folic Acid) 1 mg DAILY PO Last administered on 07/16/16 08:53; Start 07/11/16 at 09:00; Stop 08/10/16 at 08:59 Haloperidol (Haldol) 2 mg Q4HP PRN PO AGITATION Last administered on 07/12/16 15:12; Start 07/10/16 at 21:00; Stop 07/15/16 at 15:59; Status DC Hydroxyzine HCl (Atarax) 50 mg Q6HP PRN PO ANXIETY; Start 07/15/16 at 16:00; Stop 08/14/16 at 15:59 Lactobacillus Acidophilus (Bacid) 1 ea BID PO Last administered on 07/16/16 08 :52; Start 07/12/16 at 09:00; Stop 08/11/16 at 08:59 Lorazepam (Ativan) 0.5 mg Q4HP PRN PO ANXIETY; Start 07/11/16 at 11:45; Stop at 12:12; Status DC Lorazepam (Ativan) 0.5 mg Q4HP PRN PO ANXIETY Last administered on 07/15/16 08 :26; Start 07/11/16 at 15:00; Stop 07/15/16 at 15:59; Status DC Lorazepam (Ativan) 1 mg Q4HP PRN PO ANXIETY Last administered on 07/11/16 11: 05; Start 07/10/16 at 21:00; Stop 07/11/16 at 12:07; Status DC Magnesium Hydroxide (Milk Of Magnesia) 30 ml DAILYPRN PRN PO CONSTIPATION; Start 07/10/16 at 21:00; Stop 08/09/16 at 20:59 Multivitamins (Theragram-M) 1 tab DAILY PO Last administered on 07/16/16 08:53 ; Start 07/11/16 at 09:00; Stop 08/10/16 at 08:59 Nicotine (Nicoderm Cq 21mg) 1 patch DAILY TD Last administered on 07/16/16 08: 52; Start 07/11/16 at 09:00; Stop 08/10/16 at 08:59 Ondansetron HCl (Zofran) 2 mg Q6HP PRN PO NAUSEA OR VOMITING Last administered on 07/11/16 12:23; Start 07/11/16 at 11:45; Stop 07/11/16 at 19:04; Status DC Ondansetron HCl (Zofran) 4 mg Q6HP PRN PO NAUSEA OR VOMITING; Start 07/11/16 at 19:15; Stop 07/15/16 at 15:59; Status DC Quetiapine Fumarate (SEROquel) 50 mg BID PO Last administered on 07/12/16 08: 05; Start 07/11/16 at 09:00; Stop 07/12/16 at 12:19; Status DC Quetiapine Fumarate (SEROquel) 100 mg BID PO Last administered on 07/16/16 08: 53; Start 07/12/16 at 21:00; Stop 08/11/16 at 20:59 Thiamine HCl (Thiamine HCl) 100 mg DAILY PO Last administered on 07/16/16 08: 52; Start 07/11/16 at 09:00; Stop 08/10/16 at 08:59 Trazodone HCl (Desyrel) 50 mg QHSP PRN PO INSOMNIA Last administered on 23:54; Start 07/10/16 at 21:00; Stop 07/15/16 at 15:59; Status DC Allergies Coded Allergies: Diphenhydramine (Verified Allergy, Intermediate, HIVES, 07/16/16) Latex (Verified Allergy, Mild, skin reaction to condoms, 08/01/12) Penicillins (Verified Allergy, Unknown, 08/01/12) Penicillins Cross Reactors (Verified Allergy, Unknown, 08/01/12) Tiffanie Brown Jul 16, 2016 17:37
[2016-07-16] MEDS: hydrOXYzine 50 MG TAB PO PRN (20:16)
[2016-07-16] MEDS ORDERED: OLANZapine 10 MG TAB PO ONE (23:45)
[2016-07-17 06:43] VITALS: BP 114/51
[2016-07-17 06:44] VITALS: BP 114/51
[2016-07-17] MEDS: NICOTINE 21MG/24HR 1 EA TRANSDERMAL TD SCH (12:25)
[2016-07-17] MEDS: MULTIVITAMINS/MINERALS THERAP 1 TAB PO SCH (12:25)
[2016-07-17] MEDS: CLINDAMYCIN 150 MG CAP PO SCH ×3 (12:26→20:51)
[2016-07-17] MEDS: FOLIC ACID 1 MG TAB PO SCH (12:26)
[2016-07-17] MEDS: THIAMINE 100 MG TAB PO SCH (12:26)
[2016-07-17] MEDS: QUEtiapine FUMARATE 100 MG TAB PO SCH ×2 (12:26→20:51)
[2016-07-17] MEDS: LACTOBACILLUS ACIDOPHILUS CAP (BACID) PO SCH ×2 (12:26→20:51)
--- NOTE | 2016-07-17 15:51 | IPNPDOC ---
[facility] Progress Note Progress Note DATE OF SERVICE: 07/17/16 HISTORY: Patient is a 26-year-old female who indicates she has been experiencing suicidal ideation with no plan or intent for week prior to admission. Product Sales Engineer met with patient today to assess treatment progress and inpatient unit. Patient denies symptoms of anxiety and depression, indicates she became anxious last night due to, "thinking about my ex who 10 years ago, I guess sometimes I just don't want to accept that." Patient received PRN medication to address symptoms with good effect reported. Patient denies suicidal and homicidal ideation, denies audiovisual hallucinations, denies urge to engage in self-injurious behavior. Patient states she slept well last night and denies nightmare symptoms. Patient notes she feels she is doing well on Seroquel, describes mood is level noting, "I feel no different without the Depakote, I feel good." Patient denies medication side effects. Patient denies symptoms of agitation and impulsivity, denies craving and withdrawal, feels irritability has resolved, and she feels positive and optimistic about discharge tomorrow. Patient reports improvement concentration and focus, energy level, and states her appetite is stable. Patient presents with no signs of acute distress at time of interaction. VITAL SIGNS: See below. NEW TEST RESULTS: Labs on admission indicate dictated elevated chloride level, AST, ALT and low MCHC. Patient denies having chronic health issues, denies history of seizure or head injury, hep C is asymptomatic. UDS positive for cocaine and cannabinoids 07/11/16 EKG SINUS RHYTHM POSSIBLE RIGHT VENTRICULAR CONDUCTION DELAY NO PRIOR FOR COMPARISON HCG negative CURRENT MEDICATIONS: See below. MENTAL STATUS EXAMINATION: Patient is a 26-year-old single female who is observed to be up out of bed, dressed in own clothing, walking the hallways and socializing with peers, exhibiting good personal hygiene, makes good eye contact, ambulates with steady gait, appears stated age. Speech: Is of normal rate, rhythm, volume, coherent, spontaneous. Language skills are intact. Thought processes: Intact, clear and goal-directed Thought content: Rational and logical, no tangentiality noted, does not appear paranoid Abstract reasoning, and computation: Requires further evaluation Description of associations: Intact Description of abnormal or psychotic thoughts: Denies current hallucinations but indicates she was informed by ER staff that she was talking to herself, denies delusions, preoccupation with violence, homicidal or suicidal ideation, and obsessions. Judgment: Adequate, improvement noted Insight: Fair, some improvement noted Orientation to time, place and person. Recent and remote memory: Appears intact Attention span and concentration: Limited Language: Normal Fund of knowledge: Adequate Mood: "I feel better." Patient denies depression and anxiety, states mood is level, no mood lability noted Affect: Constricted, brightens frequently and appropriately, congruent with affect DIAGNOSES: Unspecified mood disorder, polysubstance use disorder, rule out bipolar disorder, rule out substance-induced mood disorder, rule out PTSD ASSESSMENT: Patient has adjusted to unit, has been visible, attending groups, and socializing appropriately with select peers. Patient indicates current medication regimen is effective and denies medication side effects. Patient denies suicidal and homicidal ideation and verbalizes awareness of how to access supportive services on the unit if needed. Will continue to monitor patient's response to Seroquel and will monitor for side effects. Patient indicates she feels prepared for discharge, denies symptoms of anxiety and depression and suicidal ideation, is aware that family meeting has been scheduled for tomorrow at noon with discharge planned thereafter. Patient states at time of discharge she would like to discharge home with her mother and participate in outpatient psychotherapy, medication management, and substance abuse treatment in [place]. Patient is refusing inpatient substance abuse treatment at this time. perinatal social worker has offered to assist patient in looking into [facility] program in which patient expressed interest, patient continues to decline assistance. Patient has been encouraged to utilize control and was informed of the risks associated with and current medication regimen, patient verbalized understanding. MANAGEMENT PLAN: Continue Seroquel 100 mg po BID. Maintain safety precautions Patient to attend groups and participate in unit programming to develop coping strategies Engage patient in discharge planning process and arrange meeting with support system to ensure safe discharge planning when appropriate Patient to follow up with PCM upon discharge TIME SPENT: 35 minutes. Vital Signs Vital Signs Date Time Temp Pulse Resp B/P Pulse Ox O2 Delivery O2 Flow Rate FiO2 07/17/16 06:44 98.3 72 16 114/51 Current Medications Current Medications Acetaminophen (Tylenol Tab) 650 mg Q6HP PRN PO HEADACHE or DISCOMFORT Last administered on 07/15/16t 16:11; Start 07/10/16 at 21:00; Stop 08/09/16 at 20:59 Al Hydrox/Mg Hydrox/Simethicone (Mylanta) 30 ml Q4HP PRN PO HEARTBURN/ INDIGESTION; Start 07/10/16 at 21:00; Stop 08/09/16 at 20:59 Clindamycin HCl (Cleocin) 300 mg TID PO Last administered on 07/17/16 12:26; Start 07/11/16 at 21:00; Stop 07/18/16 at 20:59 Clonidine HCl (Catapres) 0.1 mg Q6HP PRN PO WITHDRAWAL SYMPTOMS Last administered on 07/13/16 08:33; Start 07/11/16 at 13:00; Stop 07/15/16 at 15:59 ; Status DC Dicyclomine HCl (Bentyl) 10 mg BIDP PRN PO muscle cramps Last administered on 23:53; Start 07/11/16 at 11:45; Stop 07/15/16 at 15:59; Status DC Divalproex Sodium (Depakote Er) 250 mg BID PO Last administered on 07/14/16 09 :33; Start 07/12/16 at 09:00; Stop 07/14/16 at 18:12; Status DC Divalproex Sodium (Depakote Er) 250 mg BID PO Last administered on 07/16/16 08 :53; Start 07/15/16 at 21:00; Stop 07/16/16 at 17:47; Status DC Divalproex Sodium (Depakote Er) 500 mg BID PO Last administered on 07/15/16 08 :25; Start 07/14/16 at 21:00; Stop 07/15/16 at 19:44; Status DC Folic Acid (Folic Acid) 1 mg DAILY PO Last administered on 07/17/16 12:26; Start 07/11/16 at 09:00; Stop 08/10/16 at 08:59 Haloperidol (Haldol) 2 mg Q4HP PRN PO AGITATION Last administered on 07/12/16 15:12; Start 07/10/16 at 21:00; Stop 07/15/16 at 15:59; Status DC Hydroxyzine HCl (Atarax) 50 mg Q6HP PRN PO ANXIETY Last administered on 20:16; Start 07/15/16 at 16:00; Stop 08/14/16 at 15:59 Lactobacillus Acidophilus (Bacid) 1 ea BID PO Last administered on 07/17/16 12 :26; Start 07/12/16 at 09:00; Stop 08/11/16 at 08:59 Lorazepam (Ativan) 0.5 mg Q4HP PRN PO ANXIETY; Start 07/11/16 at 11:45; Stop at 12:12; Status DC Lorazepam (Ativan) 0.5 mg Q4HP PRN PO ANXIETY Last administered on 07/15/16 08 :26; Start 07/11/16 at 15:00; Stop 07/15/16 at 15:59; Status DC Lorazepam (Ativan) 1 mg Q4HP PRN PO ANXIETY Last administered on 07/11/16 11: 05; Start 07/10/16 at 21:00; Stop 07/11/16 at 12:07; Status DC Magnesium Hydroxide (Milk Of Magnesia) 30 ml DAILYPRN PRN PO CONSTIPATION; Start 07/10/16 at 21:00; Stop 08/09/16 at 20:59 Multivitamins (Theragram-M) 1 tab DAILY PO Last administered on 07/17/16 12:25 ; Start 07/11/16 at 09:00; Stop 08/10/16 at 08:59 Nicotine (Nicoderm Cq 21mg) 1 patch DAILY TD Last administered on 07/17/16 12: 25; Start 07/11/16 at 09:00; Stop 08/10/16 at 08:59 Ondansetron HCl (Zofran) 2 mg Q6HP PRN PO NAUSEA OR VOMITING Last administered on 07/11/16 12:23; Start 07/11/16 at 11:45; Stop 07/11/16 at 19:04; Status DC Ondansetron HCl (Zofran) 4 mg Q6HP PRN PO NAUSEA OR VOMITING; Start 07/11/16 at 19:15; Stop 07/15/16 at 15:59; Status DC Quetiapine Fumarate (SEROquel) 50 mg BID PO Last administered on 07/12/16 08: 05; Start 07/11/16 at 09:00; Stop 07/12/16 at 12:19; Status DC Quetiapine Fumarate (SEROquel) 100 mg BID PO Last administered on 07/17/16 12: 26; Start 07/12/16 at 21:00; Stop 08/11/16 at 20:59 Thiamine HCl (Thiamine HCl) 100 mg DAILY PO Last administered on 07/17/16 12: 26; Start 07/11/16 at 09:00; Stop 08/10/16 at 08:59 Trazodone HCl (Desyrel) 50 mg QHSP PRN PO INSOMNIA Last administered on 23:54; Start 07/10/16 at 21:00; Stop 07/15/16 at 15:59; Status DC Allergies Coded Allergies: Diphenhydramine (Verified Allergy, Intermediate, HIVES, 07/16/16) Latex (Verified Allergy, Mild, skin reaction to condoms, 08/01/12) Penicillins (Verified Allergy, Unknown, 08/01/12) Penicillins Cross Reactors (Verified Allergy, Unknown, 08/01/12) Tiffanie Brown Jul 17, 2016 15:51
[2016-07-17 18:00] VITALS: BP 105/59
[2016-07-17] MEDS: hydrOXYzine 50 MG TAB PO PRN (20:51)
[2016-07-17] MEDS ORDERED: OLANZapine 10 MG TAB PO ONE (21:30)
[2016-07-18 06:27] VITALS: BP 94/61
[2016-07-18] MEDS ORDERED: NICO21PAT TD (08:23)
[2016-07-18] MEDS: THIAMINE 100 MG TAB PO SCH (08:33)
[2016-07-18] MEDS: LACTOBACILLUS ACIDOPHILUS CAP (BACID) PO SCH (08:33)
[2016-07-18] MEDS: MULTIVITAMINS/MINERALS THERAP 1 TAB PO SCH (08:33)
[2016-07-18] MEDS: QUEtiapine FUMARATE 100 MG TAB PO SCH (08:33)
[2016-07-18] MEDS: CLINDAMYCIN 150 MG CAP PO SCH (08:33)
[2016-07-18] MEDS: FOLIC ACID 1 MG TAB PO SCH (08:33)
[2016-07-18] MEDS: NICOTINE 21MG/24HR 1 EA TRANSDERMAL TD SCH (09:00)
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
[2016-07-18] MEDS ORDERED: QUET1TAB8 PO (10:45)
[2016-07-18] MEDS ORDERED: BACITAB3 PO (11:19)
== END 2016-07-18 14:50 | disposition home or self-care (01) | DRG 753 ==
LOC: M ED 19:37 → M ED INP 20:55 → UNDOADMIN 21:12 → M ED INP 21:12 → M PSY 21:29
PROVIDERS: ADMIT Internal Medicine Addiction Medicine; ATTEND Psychiatry & Neurology Child & Adolescent Psychiatry
DX: F39 Unspecified mood [affective] disorder (principal); B18.2 Chronic viral hepatitis C; F14.90 Cocaine use, unspecified, uncomplicated; F11.90 Opioid use, unspecified, uncomplicated; F12.90 Cannabis use, unspecified, uncomplicated; F43.10 Post-traumatic stress disorder, unspecified; Z88.0 Allergy status to penicillin; Z88.8 Allergy status to other drugs, medicaments and biological substances; K04.7 Periapical abscess without sinus